=== PATIENT | female | born 2000 | race Caucasian/White ===

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

== ENCOUNTER 2022-12-13 21:53 | Inpatient (IN) | payer OTHER ==
[~2022-12-13] VITALS: Ht 165.1 cm; Wt 101.6 kg
[~2022-12-13 21:53] MED LIST changes: +Bactrim Ds Tab1 EACH PO; +HYDHCL25 PO; +Lamotrigine25 MG PO; +[UNRECOGNIZED DRUG - OTHER] PO
[2022-12-13 22:25] LABS: Hemoglobin 14.1 g/dL (11.5-16.0); Mean Corpuscular HGB 28.3 pg (26.0-34.0); Mean Corpuscular HGB Conc 32.8 g/dL (31.5-36.5); Mean Corpuscular Volume 86 fL (80-100); Mean Platelet Volume 9.6 fL (9.1-12.4); Platelet Count 402 K/mm3 (150-400); RDW Standard Deviation 40.6 fL (35.1-46.3); Red Blood Cell Count 4.99 M/mm3 (3.80-5.20)
[2022-12-13 22:50] LABS: LYMPHOCYTES PERCENT MAN 38 % (21-46); MONOCYTES ABSOLUTE MAN 0.93 K/mm3 (0.16-1.47); MONOCYTES PERCENT MAN 5 % (4-13); NEUTROPHILS ABSOLUTE MAN 10.28 K/mm3 (1.96-9.15); SEG NEUTROPHILS PERCENT MAN 55 % (41-73); TOTAL CELLS COUNTED 100
[2022-12-13 22:51] LABS: BASOPHILS ABSOLUTE MAN 0.18 K/mm3 (0.00-0.23); BASOPHILS PERCENT MAN 1 % (0-2); EOSINOPHILS ABSOLUTE MAN 0.18 K/mm3 (0.00-0.68); EOSINOPHILS PERCENT MAN 1 % (0-6)
[2022-12-13 23:02] LABS: Ethanol (Alcohol), Blood, Med <3 mg/dL; Magnesium, Blood 1.8 mg/dL (1.6-2.4); Salicylate 2.8 mg/dL (2.8-20.0)
[2022-12-13 23:08] LABS: Acetaminophen, Random 136.6 ug/mL (10.0-30.0); Alanine Aminotransfer (ALT/SGP 22 U/L (12-78); Albumin, Blood 4.1 g/dL (3.4-5.0); Albumin/Globulin Ratio 1.1 (0.8-1.8); Alk Phos 61 U/L (50-136); Anion Gap 11 mmol/L (6-16); Aspartate Aminotrans (AST/SGOT 8 U/L (12-37); Bilirubin, Total 0.2 mg/dL (0.1-1.0); Blood Urea Nitrogen 7 mg/dL (8-24); Bun/Creatinine Ratio 10.2 (12.0-20.0); CO2, Blood 20 mmol/L (21-32); Calcium, Blood 8.9 mg/dL (8.5-10.1); Chloride, Blood 114 mmol/L (98-108); Creatinine, Blood 0.69 mg/dL (0.40-1.00); Globulin, Blood 3.7 g/dL (2.2-4.0); Glomerular Filtration Rate 127 (60-); Glucose, Blood 111 mg/dL (70-99); Potassium, Blood 3.8 mmol/L (3.5-5.5); Sodium, Blood 145 mmol/L (136-145); Total Protein, Blood 7.8 g/dL (6.4-8.2)
[2022-12-13 23:20] LABS: Source, Urine Straight Cath
[2022-12-13 23:24] LABS: Bilirubin, Urine Neg (Neg); Blood, Urine 1+ (Neg); Glucose Qualitative, Urine Neg (Neg); Ketones, Urine 2+ (Neg); Leukocyte Esterase, Urine Neg (Neg); Nitrite, Urine Neg (Neg); Protein, Urine 2+ (Neg); Specific Gravity, Urine 1.025 (1.003-1.022); Urobilinogen, Urine NORM (Normal)
[2022-12-13 23:36] LABS: U Amphetamine Screen Not Detected; U Barbituate Screen Not Detected; U Benzodiazapine Screen Not Detected; U Buprenorphine Screen Not Detected; U Cannabinoids Screen Not Detected; U Cocaine Screen Not Detected; U Methadone Screen Not Detected; U Methamphetamine Screen Not Detected; U Opiates Screen Not Detected; U Oxycodone Screen Not Detected; U Phencyclidine Screen Not Detected; U Propoxyphene Screen Not Detected
[2022-12-13 23:37] LABS: Appearance, Urine Hazy (Clear); Color, Urine Yellow (P-Yellow)
[2022-12-13 23:38] LABS: Amorphous Light (0-Heavy); Bacteria Few /hpf; Granular Casts 0-2 /lpf (0); Squamous Epithelial Cells Few /hpf (Few); White Blood Cells, Urine 0-2 /hpf (0-5)
[2022-12-14] VITALS (13 sets, daily range): BP systolic 103–144; BP diastolic 57–91
[2022-12-14 01:46] LABS: Free Thyroxine 1.11 ng/dL (0.70-1.60); Thyroid Stimulating Hormone 4.03 uIU/mL (0.360-4.800)
[2022-12-14 05:43] LABS: Albumin, Blood 3.6 g/dL (3.4-5.0); Albumin/Globulin Ratio 1.1 (0.8-1.8); Bilirubin, Total 0.3 mg/dL (0.1-1.0); Bun/Creatinine Ratio 7.3 (12.0-20.0); Calcium, Blood 8.3 mg/dL (8.5-10.1); Creatinine, Blood 0.69 mg/dL (0.40-1.00); Globulin, Blood 3.2 g/dL (2.2-4.0); Potassium, Blood 3.5 mmol/L (3.5-5.5); Total Protein, Blood 6.8 g/dL (6.4-8.2)
--- NOTE | 2022-12-14 05:45 | NUR ---
PATIENT ARRIVED TO ICU 14 VIA BED, PATIENT ABLE TO ASSIST WITH CHANGING INTO HOSPITAL GOWN, PLACED ON ICU MONITORS. ADMIT HISTORY OBTAINED WITH ASSISTANCE OF PATIENTS GRANDMOTHER JOSH. PATIENT FALLING TO SLEEP MID CONVERSATION.
[2022-12-14] MEDS ORDERED: LAMO25 PO (07:38)
--- NOTE | 2022-12-14 09:05 | NUR ---
CARE OF PT ASSUMED AT 0700. PT INITIALLY SLEEPING, WOKE UP TO USE COMMODE. PT C/O DIZZINESS WHEN UP OR MOVING IN BED. PT WITH DRY HEAVES. PT INITIALLY ANGRY AND DEFENSIVE BECAUSE WATER AND FOOD HELD D/T NAUSEA AND VOMITING. WHEN RATIONALE EXPLAINED WITH COMPASSION, PT UNDERSTOOD AND WAS AGREEABLE TO PLAN; TREAT NAUSEA, START WITH WATER, AND INCREASE DIET TOLERATED. PT DENIES SUICIDAL IDEATION AT THIS TIME. REGRETS ACTIONS, STATES SHE WAS NOT THINKING CLEARLY AND WAS OVERWHELMED. PT STATES SHE AND HER BOYFRIEND BROKE UP RECENTLY, BEST FRIEND IS UNAVAILABLE D/T NEW BOYFRIEND, FATHERS ANNIVERSARY WAS YESTERDAY, AND A CO-WORKER RECENTLY PASSED. PT WAS "DISAPPOINTED IN MYSELF AND I SHOULD HAVE FOLLOWED MY SAFETY PLAN"
[2022-12-14 10:12] LABS: BASOPHILS ABSOLUTE AUTO 0.05 K/mm3 (0.00-0.23); BASOPHILS PERCENT AUTO 1 % (0-2); EOSINOPHILS ABSOLUTE AUTO 0.01 K/mm3 (0.00-0.68); EOSINOPHILS PERCENT AUTO 0 % (0-6); Hematocrit 36.8 % (33.0-51.0); Hemoglobin 12.6 g/dL (11.5-16.0); IMMATURE GRAN ABSOLUTE AUTO 0.03 K/mm3 (0.00-0.10); IMMATURE GRAN PERCENT AUTO 0 % (0-1); LYMPHOCYTES ABSOLUTE AUTO 2.01 K/mm3 (0.84-5.20); LYMPHOCYTES PERCENT AUTO 20 % (21-46); MONOCYTES ABSOLUTE AUTO 0.78 K/mm3 (0.16-1.47); MONOCYTES PERCENT AUTO 8 % (4-13); Mean Corpuscular HGB 28.6 pg (26.0-34.0); Mean Corpuscular HGB Conc 34.2 g/dL (31.5-36.5); Mean Corpuscular Volume 83 fL (80-100); Mean Platelet Volume 9.7 fL (9.1-12.4); NEUTROPHILS PERCENT AUTO 71 % (41-73); Platelet Count 298 K/mm3 (150-400); RDW Coefficient Variation 13.1 % (11.7-14.2); Red Blood Cell Count 4.41 M/mm3 (3.80-5.20); White Blood Cell Count 9.88 K/mm3 (4.00-11.30)
[2022-12-14 10:28] LABS: International Normalized Ratio 1.08; Prothrombin Time Results 11.3 Sec (9.7-11.5)
[2022-12-14 10:32] LABS: Albumin, Blood 3.7 g/dL (3.4-5.0); Albumin/Globulin Ratio 1.3 (0.8-1.8); Bilirubin, Total 0.4 mg/dL (0.1-1.0); Bun/Creatinine Ratio 7.3 (12.0-20.0); Calcium, Blood 8.5 mg/dL (8.5-10.1); Creatinine, Blood 0.68 mg/dL (0.40-1.00); Globulin, Blood 2.9 g/dL (2.2-4.0); Potassium, Blood 3.8 mmol/L (3.5-5.5); Total Protein, Blood 6.6 g/dL (6.4-8.2)
--- NOTE | 2022-12-14 10:53 | NUR ---
PT NOW DENIES NAUSEA; ZOFRAN WAS GIVEN. PT DOES HAVE SYMPTOMS OF VERTIGO W MOVEMENT. SOME BILAT. NYSTAGMUS NOTED. PT TOLERATING SMALL SIPS OF WATER.
--- NOTE | 2022-12-14 11:02 | NUR ---
POISON CONTROL CALLED TO GIVE UPDATE AND CHECK RECOMMENDATIONS. NO REPEAT TYLENOL NEEDED. CONTINUE COUNTINOUS CARDIAC MONITORING.
--- NOTE | 2022-12-14 18:09 | NUR ---
PT SLEPT MAJORITY OF SHIFT, WHEN AWAKE, OX3, COOPERATIVE AND PLEASANT. PT ABLE TO TOLERATE FOOD AND WATER. VERTIGO RESOLVED, MUCH MORE STEADY ON FEET; REMAINS SBA FOR SAFETY. UP TO COMMODE TO VOID X2. QTC 452. BLOOD PRESSURE STABLE. TEMP AROUND 99, BUT PT HAS BEEN BUNDLED UP IN BLANKETS WHILE SLEEPING. PT NOW PCU STATUS. 1:1 SITTER AT BEDSIDE FOR ENTIRE SHIFT; PT CONTINUES TO DENY S.I.
--- NOTE | 2022-12-14 21:41 | NUR ---
ASSUMED CARE OF PT AT 1915 BEDSIDE REPORT RECEIVED FROM MARCO ANTONIO BAJWA. PT IS A/O, PLEASANT AND COOPERATIVE, DENIES SI OR PLAN, IS REGRETFUL OF SA AND STATES SHE IS HAPPY TO BE ALIVE. PT IS NOT CURRENTLY ON A HOLD, VOLUNTARILY STAYING AND PLAN IS TO SEE PSYCHIATRIST TOMORROW TO DETERMINE PLAN MOVING FORWARD. ON CONTINUOUS CARDIAC MONITORING, SR, BP WNL. ON ROOM AIR, O2 SAT 99%. REGULAR DIET, HAD SEVERAL BM'S AFTER EATING DINNER, PT STATES THIS IS HER NORMAL A FEW DAYS AFTER EATING EGGS AND SHE REPORTS SHE HAD EGGS WEDNESDAY EVENING. FELL ASLEEP SHORTLY AFTER RETURNING TO BED FROM COMMODE. SPOKE WITH PT'S MOTHER MARIO VIA PHONE, UPDATE PROVIDED, SHE WILL BE IN TO VISIT PT TOMORROW DURING VISITING HOURS. 1:1 SITTER AT BEDSIDE. SUICIDE ASSESSMENTS ORDERED EVERY 4 HOURS.
[2022-12-15 01:16] VITALS: BP 119/64
[2022-12-15 05:25] VITALS: BP 136/75
--- NOTE | 2022-12-15 06:33 | NUR ---
END OF SHIFT SUMMARY: PT SLEPT ON AND OFF, 1:1 SITTER AT BEDSIDE. PLEASANT AND COOPERATIVE, CONTINUES TO DENY CURRENT SI. NO FAMILY AT BEDSIDE THIS SHIFT. SR, BP WNL. PT STATES SHE IS A SMOKER AND IS REQUESTING EXTRA FOOD TO HELP STAVE OFF CRAVINGS. DISCUSSED PT'S DESIRE TO QUIT SMOKING DUE TO THE ASSOCIATED COST. DENIES NAUSEA, NO VOMITING. ON ROOM AIR, LUNGS CTA. OOB TO COMMODE TO VOID, STABLE ON HER FEET. MOTHER PLANS TO VISIT TODAY.
--- NOTE | 2022-12-15 07:00 | NUR ---
ASSUMPTION OF CARE PT IS A&OX4, CALM AND COOPERATIVE. SHE PARTICIPATES IN CONVERSATION WITH STAFF. SHE REPORTS FEELING WELL OVERALL BUT DOES HAVE SOME ABDOMINAL DISCOMFORT WHEN COUGHING OR TAKING A DEEP BREATH. LUNGS ARE CLEAR THROUGHOUT. SPO2 >96% ON RA. SHE REPORTS SHE IS A DAILY SMOKER BUT DENIES NICOTINE PATCH AND STS SHE WILL NOTIFY STAFF IF SHE CHANGES HER MIND. PT VERBALIZES UNDERSTANDING OF BEING SEEN BY PSYCHIATRY TODAY. PT EXPRESSES HOPE TO GO HOME TODAY. 1:[address]
[2022-12-15 08:24] LABS: Acetaminophen, Random <2.0 ug/mL (10.0-30.0); Alanine Aminotransfer (ALT/SGP 20 U/L (12-78); Albumin, Blood 3.8 g/dL (3.4-5.0); Albumin/Globulin Ratio 1.2 (0.8-1.8); Alk Phos 50 U/L (50-136); Anion Gap 4 mmol/L (6-16); Aspartate Aminotrans (AST/SGOT 14 U/L (12-37); Bilirubin, Total 0.2 mg/dL (0.1-1.0); Blood Urea Nitrogen 11 mg/dL (8-24); Bun/Creatinine Ratio 14.1 (12.0-20.0); CO2, Blood 24 mmol/L (21-32); Calcium, Blood 8.8 mg/dL (8.5-10.1); Chloride, Blood 111 mmol/L (98-108); Creatinine, Blood 0.78 mg/dL (0.40-1.00); Globulin, Blood 3.1 g/dL (2.2-4.0); Glomerular Filtration Rate 111 (60-); Glucose, Blood 91 mg/dL (70-99); Sodium, Blood 139 mmol/L (136-145); Total Protein, Blood 6.9 g/dL (6.4-8.2)
[2022-12-15 11:04] VITALS: BP 103/75
--- NOTE | 2022-12-15 12:14 | NUR ---
UPDATE PLAN FOR DISCHARGE AND PT TO FOLLOW UP AT [facility] FOR OUTPATIENT RESOURCES. 1:1 SITTER DISCONTINUED. MOTHER AND SISTER AT BEDSIDE.
--- NOTE | 2022-12-15 14:29 | NUR ---
DISCHARGE PT PROVIDED DISCHARGE INSTRUCTIONS. MOTHER AND SISTER AT BEDSIDE. PT VERBALIZES UNDERSTANDING THAT [facility] HAS BEEN CALLED UP AND TO FOLLOW UP WITH [facility]. PT REPORTS MOTHER HAS ALREADY CALLED AND MADE AN APPOINTMENT WITH PCP ON MONDAY 12/18. PT AMBULATED OUT OF DEPARTMENT AT 1415 WITH BELONGINGS AND FAMILY.
== END 2022-12-15 14:15 | disposition home or self-care (01) | DRG 918 ==
LOC: ER 21:53 → ICUE 21:54
PROVIDERS: Emergency Medicine; Internal Medicine; Student in an Organized Health Care Education/Training Program; ADMIT Internal Medicine
DX: T39.1X2A Poisoning by 4-Aminophenol derivatives, intentional self-harm, initial encounter (principal); R45.851 Suicidal ideations; G93.40 Encephalopathy, unspecified; T42.6X2A Poisoning by other antiepileptic and sedative-hypnotic drugs, intentional self-harm, initial encounter; R94.31 Abnormal electrocardiogram [ECG] [EKG]; R00.0 Tachycardia, unspecified; D72.829 Elevated white blood cell count, unspecified; F41.9 Anxiety disorder, unspecified; J45.909 Unspecified asthma, uncomplicated; E86.0 Dehydration; Z79.899 Other long term (current) drug therapy; Z79.2 Long term (current) use of antibiotics
CPT/HCPCS: 36415; 51701; 80053; 81001; 81025; 83735; 84439; 84443; 85025; 85610; 85730; 93005; 93010; 96361; 96365; 96366; 96367; 96372; 96375; 96376; 99285-25; A9270; G0378; G0480; J0132; J1650; J2405; J3475; J3480; J7030; J7060; J7070

== ENCOUNTER 2024-02-23 17:23 | Emergency (ER) | payer OTHER ==
[~2024-02-23] VITALS: Ht 157.5 cm; Wt 113.4 kg
[~2024-02-23 17:23] MED LIST changes: +LAMO25 PO
[2024-02-23 17:35] VITALS: BP 187/111
[2024-02-23 18:24] LABS: BASOPHILS ABSOLUTE AUTO 0.07 K/mm3 (0.00-0.23); BASOPHILS PERCENT AUTO 1 % (0-2); EOSINOPHILS ABSOLUTE AUTO 0.19 K/mm3 (0.00-0.68); EOSINOPHILS PERCENT AUTO 2 % (0-6); Hematocrit 45.8 % (33.0-51.0); Hemoglobin 15.4 g/dL (11.5-16.0); IMMATURE GRAN ABSOLUTE AUTO 0.04 K/mm3 (0.00-0.10); IMMATURE GRAN PERCENT AUTO 0 % (0-1); LYMPHOCYTES ABSOLUTE AUTO 2.41 K/mm3 (0.84-5.20); LYMPHOCYTES PERCENT AUTO 22 % (21-46); MONOCYTES ABSOLUTE AUTO 0.83 K/mm3 (0.16-1.47); MONOCYTES PERCENT AUTO 8 % (4-13); Mean Corpuscular HGB 29.2 pg (26.0-34.0); Mean Corpuscular HGB Conc 33.6 g/dL (31.5-36.5); Mean Corpuscular Volume 87 fL (80-100); Mean Platelet Volume 9.5 fL (9.1-12.4); NEUTROPHILS ABSOLUTE AUTO 7.45 K/mm3 (1.96-9.15); NEUTROPHILS PERCENT AUTO 68 % (41-73); Platelet Count 358 K/mm3 (150-400); RDW Coefficient Variation 12.6 % (11.7-14.2); RDW Standard Deviation 40.2 fL (35.1-46.3); Red Blood Cell Count 5.28 M/mm3 (3.80-5.20); White Blood Cell Count 10.99 K/mm3 (4.00-11.30)
[2024-02-23 18:45] LABS: Albumin, Blood 4.1 g/dL (3.4-5.0); Bilirubin, Total 0.4 mg/dL (0.1-1.0); Bun/Creatinine Ratio 13.8 (12.0-20.0); Calcium, Blood 9.2 mg/dL (8.5-10.1); Creatinine, Blood 0.73 mg/dL (0.40-1.00); Total Protein, Blood 8.1 g/dL (6.4-8.2)
[2024-02-24] MEDS ORDERED: OMEP20ER PO (22:13)
== END 2024-02-23 19:41 | disposition left against medical advice (07) ==
LOC: ER 17:23
PROVIDERS: Student in an Organized Health Care Education/Training Program
DX: R10.12 Left upper quadrant pain (principal); Z53.21 Procedure and treatment not carried out due to patient leaving prior to being seen by health care provider
CPT/HCPCS: 80053; 83690; 85025

== ENCOUNTER 2024-02-24 17:57 | Emergency (ER) | payer OTHER ==
[~2024-02-24] VITALS: Ht 157.5 cm; Wt 113.4 kg
[2024-02-24 18:28] VITALS: BP 127/85
[2024-02-24] MEDS ORDERED: Lidocaine 2% Viscous Soln 15 ML UDC PO ONE (21:45)
[2024-02-24] MEDS ORDERED: Mag Hydrox/AL Hydrox/Simeth 30 ML UDC PO ONE (21:45)
[2024-02-24] MEDS ORDERED: OMEP20ER PO (22:13)
== END 2024-02-24 22:26 | disposition home or self-care (01) ==
LOC: ER 17:57
DX: R10.13 Epigastric pain (principal); J45.909 Unspecified asthma, uncomplicated
CPT/HCPCS: 71046; 99283-25; A9270